=== PATIENT | female | born 1950 | race Caucasian/White ===

== ENCOUNTER 2020-11-06 09:25 | Outpatient (CLI) | payer MEDICARE, SELFPAY ==
[2020-11-06 10:47] LABS: Blood Urine Neg (Negative); Glucose Urine UA Norm (Normal); Ketones Urine Negative (Negative); Nitrate Urine Positive (Negative); Protein Urine Neg (Negative); Specific Gravity, Urine 1.015 (1.005-1.030); Urine Appearance Cloudy (CLEAR); Urine Color Yellow (Yellow); pH Urine 5 (5-7)
[2020-11-06 10:48] LABS: Add Urine Microscopic? YES; Bilirubin Urine Neg (Negative); Leukocyte Esterase Urine 2+ (Negative); Urobilinogen Urine Norm (Negative)
[2020-11-06 10:55] LABS: Bacteria Urine 2+ /hpf; RBC Urine 0-4 /hpf (0-2); WBC Urine 25-40 /hpf (0-5)
[2020-11-06 10:56] LABS: Add Urine Culture? Yes
== END 2020-11-06 09:26 | disposition home or self-care (01) ==
PROVIDERS: Visit Provider Nurse Practitioner
DX: R30.9 Painful micturition, unspecified (principal); R35.0 Frequency of micturition; M54.5 Low back pain
CPT/HCPCS: 81001; 87077; 87086; 87186

== ENCOUNTER → 2022-11-09 10:39 | Outpatient (BNVA) | payer MEDICARE, SELFPAY | PROVIDERS: Visit Provider Nurse Practitioner Family | DX: S99.929A Unspecified injury of unspecified foot, initial encounter (principal); X58.XXXA Exposure to other specified factors, initial encounter | CPT/HCPCS: 73630 ==